=== PATIENT | female | born 1960 | race Caucasian/White ===

== ENCOUNTER 2019-02-18 06:00 | Day surgery (SDC) | payer MEDICAID ==
[2019-02-10 14:11] LABS: BASOPHILS # (AUTO) 0.1 X10'3 (0-0.2); BASOPHILS % (AUTO) 1.2 % (0-1); EOSINOPHILS # (AUTO) 0.2 X10'3 (0-0.9); EOSINOPHILS % (AUTO) 4.4 % (0-6); LYMPHOCYTES # (AUTO) 1.4 X10'3 (1.1-4.8); LYMPHOCYTES % (AUTO) 31.2 % (21-51); MEAN CORPUSCULAR HEMOGLOBIN 30.8 PG (27.0-31.0); MEAN CORPUSCULAR HGB CONC 33.8 g/dL (33.0-36.5); MEAN CORPUSCULAR VOLUME 91.3 FL (78-98); MEAN PLATELET VOLUME 7.7 FL (7.4-10.4); MONOCYTES # (AUTO) 0.3 X10'3 (0-0.9); MONOCYTES % (AUTO) 7.7 % (2-12); NEUTROPHILS # (AUTO) 2.4 X10'3 (1.8-7.7); NEUTROPHILS % (AUTO) 55.5 % (42-75); PRE OP HEMATOCRIT 40.2 % (35.0-45.0); PRE OP HEMOGLOBIN 13.6 g/dL (12.0-16.0); PRE OP PLATELET COUNT 207 X10'3 (140-440); RED CELL DISTRIBUTION WIDTH 13.2 % (11.5-14.5)
[2019-02-10 14:31] LABS: ALBUMIN 3.8 G/DL (3.4-5.0); ALBUMIN/GLOBULIN RATIO 1.1 (1.1-1.5); ALKALINE PHOSPHATASE 74 IU/L (46-116); BLOOD UREA NITROGEN 12 MG/DL (7-18); BUN/CREATININE RATIO 18.2 (6.6-38.0); CALCIUM 9.3 MG/DL (8.5-10.1); CHLORIDE 106 MMOL/L (99-107); CREATININE 0.66 MG/DL (0.40-0.90); PRE OP ALT 25 U/L (30-65); PRE OP ANION GAP 7 (8-16); PRE OP AST 20 U/L (10-37); PRE OP BILIRUB, TOTAL 0.5 MG/DL (0.0-1.0); PRE OP GLUCOSE 182 MG/DL (70-104); PRE OP SODIUM 141 MMOL/L (135-145); TOTAL PROTEIN 7.3 G/DL (6.4-8.2); eGFR > 90 ML/MIN
[2019-02-10 18:46] LABS: HEMOGLOBIN A1C 7.5 % (4.5-6.2)
[~2019-02-18] VITALS: Ht 152.4 cm; Wt 68.9 kg
[~2019-02-18 06:00] MED LIST: ATOR20TA66 PO; BACL20TA PO; ESCI20TA38 PO; HYDR-3968 PO; INSU100V9 SQ; LEVO25TA7 PO; LOSA100T57 PO; METF500T PO; MONT10TA24 PO; NAPR-1166 PO; PIOG15TA8 PO; TEMA30CA5 PO; clindamycin 600mg/D5W 50ml 50 ML IV ONE; famotidine 20mg tablet PO ONE; ringers solution, lacted 1,000 ML IV SCH
[2019-02-18] MEDS ORDERED: BUPIVAcaine/PF 2.5mg/ml (0.25%) 10ml vial ONE (06:55)
[2019-02-18] MEDS ORDERED: LIDOcaine 0.5% (5mg/ml) 50ml vial ONE (07:25)
[2019-02-18] MEDS ORDERED: fentaNYL/PF 50MCG/1 ML 2ML syringe ONE (08:10)
[2019-02-18] MEDS ORDERED: midazolam 2 mg/2 ml injection ONE (08:11)
[2019-02-18] MEDS ORDERED: propofol inj 20 ML IV ONE (08:43)
[2019-02-18 08:49] VITALS: BP 164/94
--- NOTE | 2019-02-18 08:49 | NUR ---
Received from OR via [facility] , accompanied by Anesthesiologist VARGAS and report given by Anesthesiolgist. PATIENT WITH 20G PIV IN LEFT HAND RUNNING LR AT 100. DENIES PAIN. RIGHT WRIST DRESSING IS CDI. MOVES ALL FINGERS AND THUMB. RIGHT WRIST DRESSING IS CDI.VSS Addendum: 02/18/19 at 0857 by Skip Romero RN, RN Amended: Links added.
[2019-02-18 08:57] VITALS: BP 141/83
[2019-02-18 08:59] VITALS: BP_SYST 141; BP_SYST 179; BP_DIAS 83; BP_DIAS 97
[2019-02-18 09:09] VITALS: BP 166/95
[2019-02-18 09:19] VITALS: BP 158/90
--- NOTE | 2019-02-18 09:29 | NUR ---
ALL DC CRITERIA HAS BEEN MET. IV TAKEN OUT WITHOUT COMPLICATIONS. ALL INSTRUCTIONS COVERED AND ALL QUESTIONS ANSWERED. DRESSINGS CDI. OUT VIA WHEELCHAIR TO PERSONAL VEHICLE WHERE PATIENT WAS SECURED IN AND DRIVEN HOME BY FAMILY. Addendum: 02/18/19 at 1122 by Skip Romero RN, RN Amended: Links added.
== END 2019-02-18 09:29 | disposition home or self-care (01) ==
LOC: PAS 06:00
PROVIDERS: ATTEND Orthopaedic Surgery Hand Surgery
DX: M65.341 Trigger finger, right ring finger (principal); E11.9 Type 2 diabetes mellitus without complications
CPT/HCPCS: 26055; 36415; 80053; 82948; 83036; 84443; 85025; 93005; A6222; A6449; J2001; J2250; J2704; J3010; J3490; J7120